=== PATIENT | female | born 1935 | race Caucasian/White ===

== ENCOUNTER 2022-03-31 07:57 | Outpatient (CLI) | payer MEDICARE | END 2022-03-31 07:58 | disposition home or self-care (01) | LOC: CSHMAMMO 07:57 | PROVIDERS: ATTEND Family Medicine | DX: Z12.31 Encounter for screening mammogram for malignant neoplasm of breast (principal); Z91.89 Other specified personal risk factors, not elsewhere classified | CPT/HCPCS: 77063; 77067 ==

== ENCOUNTER 2023-04-13 09:25 | Outpatient (CLI) | payer MEDICARE, OTHER | END 2023-04-13 09:26 | disposition home or self-care (01) | LOC: CSHMAMMO 09:25 | PROVIDERS: ATTEND Family Medicine | DX: Z12.31 Encounter for screening mammogram for malignant neoplasm of breast (principal); Z91.89 Other specified personal risk factors, not elsewhere classified | CPT/HCPCS: 77063; 77067 ==

== ENCOUNTER 2024-04-16 13:26 | Outpatient (CLI) | payer MEDICARE | END 2024-04-16 13:27 | disposition home or self-care (01) | LOC: CSHMAMMO 13:26 | PROVIDERS: ATTEND Family Medicine | DX: Z12.31 Encounter for screening mammogram for malignant neoplasm of breast (principal); Z91.89 Other specified personal risk factors, not elsewhere classified | CPT/HCPCS: 77063; 77067 ==

== ENCOUNTER 2025-02-01 07:59 | Outpatient (CLI) | payer MEDICARE | END 2025-02-01 08:00 | disposition home or self-care (01) | LOC: CSHMAMMO 07:59 | PROVIDERS: ATTEND Family Medicine | DX: Z78.0 Asymptomatic menopausal state (principal); M85.851 Other specified disorders of bone density and structure, right thigh; M85.852 Other specified disorders of bone density and structure, left thigh | CPT/HCPCS: 77080 ==

== ENCOUNTER 2025-04-03 08:58 | Outpatient (CLI) | payer MEDICARE ==
[2025-04-03] MEDS ORDERED: Iopamidol 300 61% 100 ML VIAL FS ONE (15:32)
== END 2025-04-03 08:59 | disposition home or self-care (01) ==
LOC: CSHCT 08:58
PROVIDERS: ATTEND Physician Assistant Medical
DX: K59.00 Constipation, unspecified (principal); K21.00 Gastro-esophageal reflux disease with esophagitis, without bleeding; R10.30 Lower abdominal pain, unspecified; N28.9 Disorder of kidney and ureter, unspecified; N28.1 Cyst of kidney, acquired
CPT/HCPCS: 74176; Q9967